=== PATIENT | male | born 1955 | race African-American/Black ===

== ENCOUNTER 2019-11-23 15:18 | Inpatient (IN) ==
[2019-11-23] MEDS ORDERED: hydrALAZINE 20 MG/1 ML VIAL IV STA (16:19)
[2019-11-23 17:07] LABS: Basophils % 0.4 % (0.0-0.8); Eosinophils # 0.1 10*3/uL (0.0-0.87); Eosinophils % 0.5 % (0.00-10.9); Hematocrit 40.7 VOL% (42.0-52.0); Hemoglobin 13.7 GM/DL (14.0-18.0); Immature Granulocytes % 0.4 %; Immature Granulocytes Absolute 0.04 #; Lymphocytes # 2.1 10*3/uL (1.4-4.0); Lymphocytes % 21.6 % (21.2-54.2); Mean Corpuscular HGB Conc 33.7 GM/DL (32-36); Mean Corpuscular Volume 87.3 FL (87-102); Mean Platelet Volume 11.8 FL (9.6-12.0); Monocytes % 5.5 % (1.7-12.7); Neutrophils % 71.6 % (38.7-73.9); Platelet Count 246 T/CUMM (130-400); Red Blood Count 4.66 MC/CUMM (3.8-5.5); Red Cell Distribution Width 13.7 % (9.3-17.3); White Blood Count 9.6 T/CUMM (4-12)
[2019-11-23 17:23] LABS: Albumin 3.8 G/DL (3.4-5.0); Bilirubin,Total 0.5 MG/DL (0.2-1.0); Calcium 9.2 MG/DL (8.5-10.1); Osmolality,Calculated 280.4 MOS/KG (273-304); Total Protein 7.8 G/DL (6.4-8.3)
[2019-11-23 17:44] LABS: PT Patient Result 10.7 SECS (9.6-12.2); Partial Thromboplastin Time 26.6 SECS (20.8-36.0)
[2019-11-23 17:53] LABS: Apearance,Urine CLEAR (Clear); Bacteria,Urine Occasional /HPF (Few); Bilirubin,Urine Negative (Negative); Blood, Urine Negative (Negative); Glucose,Urine (UA) Negative (Negative); Ketones,Urine 5 mg/dL (Negative); Mucus,Urine Occasional /LPF (Occasional); Nitrite,Urine Negative (Negative); Protein,Urine 30 MG/DL; Squamous Epithelial Cell,Urine Occasional /HPF (0-10); Urine Color Yellow (Yellow); Urine Specific Gravity 1.026 (1.001-1.035)
[2019-11-23 18:10] LABS: Barbiturates Screen,Urine Negative (Negative); Benzodiazepines Screen,Urine Negative (Negative); Cannabinoid Screen,Urine Positive (Negative); Opiate Screen,Urine Negative (Negative); Phencyclidine Screen,Urine Negative (Negative)
[2019-11-23] MEDS ORDERED: LABETALOL 20 MG/4 ML SYRINGE IV PRN (19:13)
[2019-11-23] MEDS ORDERED: ONDANSETRON 4 MG/2 ML VIAL IV PRN (19:13)
[2019-11-23 19:42] LABS: Risk Ratio 2.82
[2019-11-23] MEDS: SODIUM CHLORIDE 0.9% 1,000 ML IV SCH (21:51)
[2019-11-23] MEDS: ENOXAPARIN 40 MG/0.4 ML SYRINGE SUBCUT SCH ×2 (21:54→22:07)
[2019-11-23] MEDS ORDERED: INFLUENZA VIRUS VACCINE 0.5 ML SYRINGE IM ONE (22:44)
[2019-11-23] MEDS ORDERED: PNEUMOCOCCAL VACCINE (13 VALENT) 0.5 ML SYRINGE IM ONE (23:17)
[2019-11-23] MEDS ORDERED: ALBUTEROL/IPRATROPIUM 3 ML NEB RESP TX ONE (23:59)
[2019-11-24] MEDS: ALBUTEROL/IPRATROPIUM 3 ML NEB RESP TX SCH ×4 (00:32→19:38)
[2019-11-24 01:54] LABS: Basophils % 0.5 % (0.0-0.8); Eosinophils # 0.1 10*3/uL (0.0-0.87); Eosinophils % 1.6 % (0.00-10.9); Hematocrit 38.6 VOL% (42.0-52.0); Hemoglobin 13.5 GM/DL (14.0-18.0); Immature Granulocytes % 0.2 %; Immature Granulocytes Absolute 0.02 #; Lymphocytes # 2.6 10*3/uL (1.4-4.0); Lymphocytes % 29.8 % (21.2-54.2); Mean Corpuscular Volume 85.2 FL (87-102); Monocytes % 7.3 % (1.7-12.7); Neutrophils % 60.6 % (38.7-73.9); Platelet Count 253 T/CUMM (130-400); Red Blood Count 4.53 MC/CUMM (3.8-5.5); Red Cell Distribution Width 13.4 % (9.3-17.3); White Blood Count 8.8 T/CUMM (4-12)
[2019-11-24 02:23] LABS: Calcium 9.3 MG/DL (8.5-10.1); Thyroid Stimulating Hormone 0.836 uIU/ml (0.358-3.74)
[2019-11-24] MEDS: SODIUM CHLORIDE 0.9% 1,000 ML IV SCH ×2 (07:29→20:12)
[2019-11-24] MEDS ORDERED: PANTOPRAZOLE 40 MG VIAL IV SCH (09:00)
[2019-11-24] MEDS: ENOXAPARIN 40 MG/0.4 ML SYRINGE SUBCUT SCH (19:31)
[2019-11-25] MEDS: ALBUTEROL/IPRATROPIUM 3 ML NEB RESP TX SCH ×4 (00:19→18:40)
[2019-11-25] MEDS: ROSUVASTATIN 20 MG TABLET PO SCH (08:42)
[2019-11-25] MEDS: amLODIPine 10 MG TABLET PO SCH (08:43)
[2019-11-25] MEDS: lisinopriL 20 MG TABLET PO SCH (08:43)
[2019-11-25] MEDS: PANTOPRAZOLE 40 MG TABLET PO SCH (08:43)
[2019-11-25] MEDS: ASPIRIN EC 81 MG TABLET PO SCH (08:43)
[2019-11-25] MEDS ORDERED: CLOPIDOGREL 75 MG TABLET PO SCH (09:00)
[2019-11-25] MEDS ORDERED: amLODIPine 5 MG TABLET PO SCH ×2 (09:00)
[2019-11-25] MEDS: ENOXAPARIN 40 MG/0.4 ML SYRINGE SUBCUT SCH (16:35)
[2019-11-26] MEDS: ALBUTEROL/IPRATROPIUM 3 ML NEB RESP TX SCH ×2 (00:37→07:41)
[2019-11-26 07:16] LABS: Basophils # 0.1 10*3/uL (0.0-0.2); Basophils % 0.5 % (0.0-0.8); Eosinophils # 0.3 10*3/uL (0.0-0.87); Eosinophils % 2.7 % (0.00-10.9); Hematocrit 35.9 VOL% (42.0-52.0); Hemoglobin 12.5 GM/DL (14.0-18.0); Immature Granulocytes % 0.3 %; Immature Granulocytes Absolute 0.03 #; Lymphocytes # 2.8 10*3/uL (1.4-4.0); Lymphocytes % 28.7 % (21.2-54.2); Mean Corpuscular HGB Conc 34.8 GM/DL (32-36); Mean Corpuscular Volume 85.7 FL (87-102); Mean Platelet Volume 11.6 FL (9.6-12.0); Neutrophils % 58.8 % (38.7-73.9); Platelet Count 233 T/CUMM (130-400); Red Blood Count 4.19 MC/CUMM (3.8-5.5); Red Cell Distribution Width 13.5 % (9.3-17.3); White Blood Count 9.8 T/CUMM (4-12)
[2019-11-26 07:29] LABS: Calcium 9.1 MG/DL (8.5-10.1); Osmolality,Calculated 279.4 MOS/KG (273-304)
[2019-11-26] MEDS: PANTOPRAZOLE 40 MG TABLET PO SCH (08:31)
[2019-11-26] MEDS: ASPIRIN EC 81 MG TABLET PO SCH (08:31)
[2019-11-26] MEDS: amLODIPine 10 MG TABLET PO SCH (08:31)
[2019-11-26] MEDS: ROSUVASTATIN 20 MG TABLET PO SCH (08:31)
[2019-11-26] MEDS: lisinopriL 20 MG TABLET PO SCH (08:32)
[2019-11-26] MEDS ORDERED: lisinopriL 20 MG TABLET PO SCH (09:00)
[2019-11-26 11:35] VITALS: BP 176/89
== END 2019-11-26 13:50 | disposition home or self-care (01) | DRG 65 ==
LOC: EDBD → N.ED 15:18 → N.EDINP 19:13 → N.4E 20:57
PROVIDERS: ADMIT Internal Medicine; ATTEND Internal Medicine